=== PATIENT | male | born 1990 | race Hispanic/Latino ===

== ENCOUNTER 2023-01-08 21:26 | Emergency (ER) | payer OTHER ==
[2023-01-09] MEDS ORDERED: Ibuprofen 200 MG TAB ONE (00:57)
[2023-01-09] MEDS ORDERED: Amoxicillin/Potassium Clav 875 MG TAB ONE (00:57)
== END 2023-01-09 00:47 | disposition home or self-care (01) ==
LOC: CSHERS 21:26
DX: L03.115 Cellulitis of right lower limb (principal)
CPT/HCPCS: 99283